=== PATIENT | male | born 1945 | race Caucasian/White ===

== ENCOUNTER 2018-04-14 06:26 | Day surgery (SDC) | payer BC, MEDICARE ==
[2018-04-14] MEDS ORDERED: Lactated Ringers 1,000 ML IV SCH (07:00)
[2018-04-14] MEDS ORDERED: Midazolam 1 MG/ML 2 ML SDV ONE (07:21)
[2018-04-14] MEDS ORDERED: fentaNYL 100 MCG/2 ML SDV ONE (07:21)
[2018-04-14] MEDS ORDERED: Propofol 200 MG/20 ML SDV ONE (07:22)
[2018-04-14 09:16] VITALS: BP 142/82
--- NOTE | 2018-04-14 14:26 | OR ---
DATE OF PROCEDURE: 04/14/2018 PREOPERATIVE DIAGNOSIS: History of adenomatous colon polyps. POSTOPERATIVE DIAGNOSES: Diverticulosis, history of adenomatous colon polyps. PROCEDURE: Colonoscopy to the cecum. ANESTHESIA: IV anesthesia with monitored anesthesia care. INDICATION: This 72-year-old white male is here for a colonoscopy because of a history of adenomatous colon polyps. His last colonoscopic exam he says was done 3 years ago. I counseled him for the procedure including risks and alternatives and he gave his informed consent to proceed. DESCRIPTION OF PROCEDURE: The patient was placed in the left lateral decubitus position. IV anesthesia was administered by the Anesthesia Service. Time-out was held. The flexible video Olympus colonoscope was introduced through his anus, up his rectum, and out his colon, all the way to the cecum. En route, we saw multiple left-sided diverticula. There was no bleeding or inflammation associated with any of them. Once the cecum was reached, the scope was slowly withdrawn examining the mucosa throughout. No additional mucosal abnormalities were noted. The scope was retroflexed in the rectum with the distal rectum appearing unremarkable. The scope was straightened and removed. He tolerated the procedure well. Repeat colonoscopy in 5 years. Berto Montanez MD /[id number]
== END 2018-04-14 09:25 | disposition home or self-care (01) ==
LOC: JP.SDS 06:26
PROVIDERS: ATTEND Surgery
DX: Z12.11 Encounter for screening for malignant neoplasm of colon (principal); K57.30 Diverticulosis of large intestine without perforation or abscess without bleeding; I10 Essential (primary) hypertension; E78.5 Hyperlipidemia, unspecified; Z86.010 Personal history of colon polyps; Z88.1 Allergy status to other antibiotic agents; Z88.2 Allergy status to sulfonamides
CPT/HCPCS: G0105; J2250; J2704; J3010; J7120

== ENCOUNTER 2020-11-28 13:42 | Emergency (ER) | payer MEDICARE ==
[2020-11-28 14:00] VITALS: BP 179/84; PULSE 70
[2020-11-28] MEDS ORDERED: HYDROmorphone 0.5 MG/0.5 ML Syringe IVPUSH ONE (14:18)
[2020-11-28] MEDS ORDERED: Sodium Chloride 0.9% 10 ML Syringe FLUSH PRN (14:18)
--- NOTE | 2020-11-28 14:29 | EDM.PDOC ---
ED HPI GENERAL MEDICAL PROBLEM - General Chief Complaint: Abdominal Pain Stated Complaint: GALLBLADDER PAIN Time Seen by Provider: 11/28/20 14:15 Source of Information: Reports: Patient, Old Records (requested from [place]) History Limitations: Reports: No Limitations - History of Present Illness INITIAL COMMENTS - FREE TEXT/NARRATIVE: 75 yo male who lives locally was seen this past Tuesday in a hospital in [place] this past and dx with acute cholecystitis and treated with hydrocodone and Augmentin. Records actually show that his CT scan showed cholelithiasis and no cholecystitis. He did also have a 4-5 mm stone in either his cystic duct or his common duct. He had in addition the incidental finding of a 3.5 mm infrarenal aortic aneurysm. His wbc ct was 9.9 and his BMP was all normal. He was instructed also to follow up with his primary upon return home for a surgical referral. He is now back home and is still having pain so came here to our ER. He implies that the hydrocodone has not done him a lot of good. He was doing well after d/c from [place] ER until last night when he ate some corn oil margarine last night on crackers and has had pain ever since. No fever. No jaundice. Pain is epigastric. Onset: Sudden Onset Date: 11/27/20 Duration: Hour(s):, Constant Location: Reports: Abdomen (epigastrium) Quality: Reports: Pressure Severity: Moderate Improves with: Reports: None Worsens with: Reports: Other (? eating fat) Context: Reports: Other (See HPI) Associated Symptoms: Reports: No Other Symptoms. Denies: Fever/Chills, Nausea/Vomiting Treatments LIBRARY SERVICES ASSISTANT: Reports: Other (see below) (Augmentin and hydrocodone/APAP) Right Upper Abdomen Pain Score (Numeric/FACES): 6 - Related Data Allergies Allergy/AdvReac Type Severity Reaction Status Date / Time ofloxacin [From Floxin] Allergy Unknown Cannot Verified 11/28/20 14:05 Remember sulfadiazine Allergy Unknown Cannot Verified 11/28/20 14:05 Remember Home Meds: Home Meds Fosinopril [Monopril] 30 mg PO DAILY 02/14/15 [History] atorvaSTATin [Lipitor] 40 mg PO BEDTIME 02/14/15 [History] Amoxicillin/Clavulanate K [Augmentin 875-125 MG] 1 tab PO BID 11/28/20 [History] oxyCODONE 5 mg PO Q4HR PRN 11/28/20 [History] Past Medical History HEENT History: Reports: Impaired Vision, Other (See Below) Other HEENT History: wears reading glasses Cardiovascular History: Reports: High Cholesterol, Hypertension Respiratory History: Reports: None Gastrointestinal History: Reports: Colon Polyp, Other (See Below) Other Gastrointestinal History: colon tubular adenomas, "heart burn" Genitourinary History: Reports: None Musculoskeletal History: Reports: None Neurological History: Reports: None Psychiatric History: Reports: None Endocrine/Metabolic History: Reports: None Hematologic History: Reports: None Immunologic History: Reports: None Oncologic (Cancer) History: Reports: None Dermatologic History: Reports: None - Infectious Disease History Infectious Disease History: Reports: None - Past Surgical History Head Surgeries/Procedures: Reports: None HEENT Surgical History: Reports: Eye Surgery, Other (See Below) Other HEENT Surgeries/Procedures: TRIGEM EYE SURGERY for growth on eye ball Cardiovascular Surgical History: Reports: None GI Surgical History: Reports: Colonoscopy, Hernia, Inguinal Endocrine Surgical History: Reports: None Neurological Surgical History: Reports: None Musculoskeletal Surgical History: Reports: None Oncologic Surgical History: Reports: None Dermatological Surgical History: Reports: None Social & Family History - Family History HEENT: Reports: Cataract, Glaucoma, Hearing Impairment, Impaired Vision, Macular Degeneration Cardiac: Reports: Bypass, CAD, Hypertension Respiratory: Reports: None GI: Reports: None : Reports: None OBGYN: Reports: None Musculoskeletal: Reports: Arthritis Neurological: Reports: CVA Psychiatric: Reports: None Endocrine/Metabolic: Reports: None Hematologic: Reports: None Immunologic: Reports: None Dermatologic: Reports: None Oncologic: Reports: None - Tobacco Use Tobacco Use Status *Q: Never Tobacco User - Caffeine Use Caffeine Use: Reports: Coffee - Recreational Drug Use Recreational Drug Use: No ED ROS GENERAL - Review of Systems Review Of Systems: See Below Constitutional: Reports: No Symptoms. Denies: Fever, Chills HEENT: Reports: No Symptoms Respiratory: Reports: No Symptoms Cardiovascular: Reports: No Symptoms GI/Abdominal: Reports: Abdominal Pain. Denies: Black Stool, Bloody Stool, Constipation, Diarrhea, Distension, Hematemesis, Melena, Nausea, Vomiting : Reports: No Symptoms Musculoskeletal: Reports: No Symptoms Skin: Reports: No Symptoms Neurological: Reports: No Symptoms ED EXAM, GI/ABD - Physical Exam Exam: See Below Exam Limited By: No Limitations General Appearance: Alert, WD/WN, Mild Distress Eyes: Bilateral: Normal Appearance (no scleral icterus) Ears: Normal External Exam, Normal Canal, Hearing Grossly Normal Nose: Normal Inspection, No Blood Throat/Mouth: Normal Inspection, Normal Lips, Normal Oropharynx, Normal Voice, No Airway Compromise Head: Atraumatic, Normocephalic Neck: Normal Inspection Respiratory/Chest: No Respiratory Distress, Lungs Clear, Normal Breath Sounds, No Accessory Muscle Use Cardiovascular: Regular Rate, Rhythm, No Edema GI/Abdominal Exam: Normal Bowel Sounds, Soft, No Distention, Tender (epigastrium). No: Distended, Guarding, Rigid, Rebound Extremities: Normal Inspection, Normal Range of Motion, Non-Tender, No Pedal Edema. No: Pedal Edema Neurological: Alert, Oriented, CN II-XII Intact, Normal Cognition, No Motor/Sensory Deficits Psychiatric: Normal Affect, Normal Mood Skin Exam: Warm, Dry, Intact, Normal Color, No Rash Course - Vital Signs Last Recorded V/S: Last Vital Signs Temp 36.4 C 11/28/20 14:15 Pulse 70 11/28/20 14:15 Resp 16 11/28/20 14:15 BP 179/84 H 11/28/20 14:15 Pulse Ox 99 11/28/20 14:15 - Orders/Labs/Meds Orders: Active Orders 24 hr Category Date Time Status Sodium Chloride 0.9% [Saline Flush] Med 11/28/20 14:18 Active 10 ml FLUSH ASDIRECTED PRN Saline Lock Insert [OM.PC] Routine Oth 11/28/20 14:18 Ordered Medication Orders Sodium Chloride (Sodium Chloride 0.9% 10 Ml Syringe) 10 ml FLUSH ASDIRECTED PRN PRN Reason: Keep Vein Open Last Admin: 11/28/20 14:31 Dose: 10 ml Documented by: [id number] Labs: Laboratory Tests 11/28/20 11/28/20 Range/Units 14:47 14:47 WBC 9.2 (4.5-11.0) K/uL RBC 5.01 (4.30-5.90) M/uL Hgb 14.4 (12.0-15.0) g/dL Hct 42.7 (40.0-54.0) % MCV 85 (80-98) fL MCH 29 (27-31) pg MCHC 34 (32-36) % Plt Count 211 (150-400) K/uL Sodium 139 L (140-148) mmol/L Potassium 4.2 (3.6-5.2) mmol/L Chloride 102 (100-108) mmol/L Carbon Dioxide 28 (21-32) mmol/L Anion Gap 13.2 (5.0-14.0) mmol/L BUN 20 H (7-18) mg/dL Creatinine 0.9 (0.8-1.3) mg/dL Est Cr Clr Drug Dosing 74.35 mL/min Estimated GFR (MDRD) > 60 (>60) Glucose 101 (74-106) mg/dL Calcium 8.5 (8.5-10.1) mg/dL Total Bilirubin 0.8 (0.2-1.0) mg/dL AST 30 (15-37) U/L ALT 48 (12-78) U/L Alkaline Phosphatase 80 (46-116) U/L C-Reactive Protein 4.09 H (0.0-0.3) mg/dL Total Protein 6.4 (6.4-8.2) g/dL Albumin 3.6 (3.4-5.0) g/dL Globulin 2.8 (2.3-3.5) g/dL Albumin/Globulin Ratio 1.3 (1.2-2.2) Lipase 80 (73-393) U/L Meds: Medications Generic Name Dose Route Start Last Admin Trade Name Freq PRN Reason Stop Dose Admin Sodium Chloride 10 ml 11/28/20 14:18 11/28/20 14:31 Sodium Chloride 0.9% 10 Ml Syringe FLUSH 10 ml ASDIRECTED PRN Administration Keep Vein Open Discontinued Medications Generic Name Dose Route Start Last Admin Trade Name Freq PRN Reason Stop Dose Admin Hydromorphone HCl 0.5 mg 11/28/20 14:18 11/28/20 14:30 Hydromorphone 0.5 Mg/0.5 Ml Syringe IVPUSH 11/28/20 14:19 0.5 mg ONETIME ONE Administration Departure - Departure Time of Disposition: 16:23 Disposition: Home, Self-Care 01 Condition: Fair Clinical Impression: Biliary colic symptom - Discharge Information *PRESCRIPTION DRUG MONITORING PROGRAM REVIEWED*: Not Applicable *COPY OF PRESCRIPTION DRUG MONITORING REPORT IN PATIENT LOPEZ: Not Applicable Instructions: Biliary Colic, Adult Referrals: Dakota Cordero MD [Primary Care Provider] - Forms: ED Department Discharge Additional Instructions: Eat a no fat diet for now. Someone will call you with an appt to see one of our surgeons next week regarding your gallbladder. Return for fever, uncontrolled pain, or turning yellow. Sepsis Event Note (ED) - Evaluation Sepsis Screening Result: No Definite Risk - Focused Exam Vital Signs: Vital Signs Temp Pulse Resp BP Pulse Ox 11/28/20 14:15 36.4 C 70 16 179/84 H 99 11/28/20 13:58 36.4 C 70 16 179/84 H 99 - My Orders Last 24 Hours: My Active Orders 11/28/20 14:18 Sodium Chloride 0.9% [Saline Flush] 10 ml FLUSH ASDIRECTED PRN Saline Lock Insert [OM.PC] Routine - Assessment/Plan Last 24 Hours: My Active Orders 11/28/20 14:18 Sodium Chloride 0.9% [Saline Flush] 10 ml FLUSH ASDIRECTED PRN Saline Lock Insert [OM.PC] Routine
== END 2020-11-28 16:45 | disposition home or self-care (01) ==
LOC: JP.ED 13:42
DX: R10.13 Epigastric pain (principal); E78.00 Pure hypercholesterolemia, unspecified; I10 Essential (primary) hypertension; Z88.1 Allergy status to other antibiotic agents; Z88.8 Allergy status to other drugs, medicaments and biological substances; Z79.899 Other long term (current) drug therapy
CPT/HCPCS: 36415; 80053; 83690; 85027; 86140; 96374; 99284; J1170

== ENCOUNTER 2020-12-18 12:44 | Observation (INO) | payer MEDICARE ==
[2020-12-18] MEDS ORDERED: Sodium Chloride 0.9% 10 ML Syringe FLUSH PRN (13:38)
--- NOTE | 2020-12-18 13:44 | EDM.PDOC ---
ED HPI GENERAL MEDICAL PROBLEM - General Chief Complaint: Abdominal Pain Stated Complaint: GALL BLADDER ATTACK Time Seen by Provider: 12/18/20 13:21 Source of Information: Reports: Patient, Family, Old Records, RN Notes Reviewed History Limitations: Reports: No Limitations - History of Present Illness INITIAL COMMENTS - FREE TEXT/NARRATIVE: 75-year-old gentleman presents emergency department day complaint of epigastric right upper quadrant pain, he has had an extensive evaluation for, including a CT of the abdomen MRCP of the abdomen CT of the abdomen did show acute cholecy stitis with questionable stone in the gallbladder duct MRCP did not reveal any stone. He had a preop done yesterday which had normal lab work. He states he was doing well and then this morning he had breakfast nothing out of the ordinary sudden onset epigastric pain right upper quadrant pain which she has had before. He denies any shortness of breath nausea vomiting or chest pain no diaphoresis. Abdominal Pain Score (Numeric/FACES): 8 - Related Data Allergies Allergy/AdvReac Type Severity Reaction Status Date / Time ofloxacin [From Floxin] Allergy Unknown Cannot Verified 12/18/20 13:07 Remember sulfadiazine Allergy Unknown Cannot Verified 12/18/20 13:07 Remember Home Meds: Home Meds Fosinopril [Monopril] 30 mg PO DAILY 02/14/15 [History] atorvaSTATin [Lipitor] 40 mg PO BEDTIME 02/14/15 [History] Past Medical History HEENT History: Reports: Impaired Vision, Other (See Below) Other HEENT History: wears reading glasses Cardiovascular History: Reports: High Cholesterol, Hypertension Gastrointestinal History: Reports: Colon Polyp, Other (See Below) Other Gastrointestinal History: colon tubular adenomas, "heart burn" - Past Surgical History Head Surgeries/Procedures: Reports: None HEENT Surgical History: Reports: Eye Surgery, Other (See Below) Other HEENT Surgeries/Procedures: TRIGEM EYE SURGERY for growth on eye ball Cardiovascular Surgical History: Reports: None GI Surgical History: Reports: Colonoscopy, Hernia, Inguinal Endocrine Surgical History: Reports: None Neurological Surgical History: Reports: None Musculoskeletal Surgical History: Reports: None Oncologic Surgical History: Reports: None Dermatological Surgical History: Reports: None Social & Family History - Family History HEENT: Reports: Cataract, Glaucoma, Hearing Impairment, Impaired Vision, Macular Degeneration Cardiac: Reports: Bypass, CAD, Hypertension Respiratory: Reports: None GI: Reports: None : Reports: None OBGYN: Reports: None Musculoskeletal: Reports: Arthritis Neurological: Reports: CVA Psychiatric: Reports: None Endocrine/Metabolic: Reports: None Hematologic: Reports: None Immunologic: Reports: None Dermatologic: Reports: None Oncologic: Reports: None - Tobacco Use Tobacco Use Status *Q: Never Tobacco User Second Hand Smoke Exposure: No - Caffeine Use Caffeine Use: Reports: Coffee Other Caffeine Use: 2 cups per day of coffee - Alcohol Use Days Per Week of Alcohol Use: 0 - Recreational Drug Use Recreational Drug Use: No ED ROS GENERAL - Review of Systems Review Of Systems: See Below Constitutional: Denies: Fever, Chills HEENT: Reports: No Symptoms Respiratory: Reports: No Symptoms Cardiovascular: Reports: No Symptoms GI/Abdominal: Reports: Abdominal Pain. Denies: Nausea, Vomiting : Reports: No Symptoms Musculoskeletal: Reports: No Symptoms ED EXAM, GI/ABD - Physical Exam Exam: See Below Exam Limited By: No Limitations General Appearance: Alert, WD/WN, No Apparent Distress Respiratory/Chest: No Respiratory Distress, Lungs Clear, Normal Breath Sounds, No Accessory Muscle Use, Chest Non-Tender Cardiovascular: Regular Rate, Rhythm, No Murmur GI/Abdominal Exam: Soft, Guarding, Tender (Right upper quadrant) Course - Vital Signs Last Recorded V/S: Last Vital Signs Temp 97.9 F 12/18/20 13:09 Pulse 70 12/18/20 13:09 Resp 99 H 12/18/20 13:09 BP 165/68 H 12/18/20 13:09 Pulse Ox 100 12/18/20 13:09 - Orders/Labs/Meds Orders: Active Orders 24 hr Category Date Time Status Peripheral IV Care [RC] . DIRECTED Care 12/18/20 13:38 Ordered COVID-19/FLU A+B/RSV [MOLEC] Stat Lab 12/18/20 13:38 Ordered Sodium Chloride 0.9% [Saline Flush] Med 12/18/20 13:38 Ordered 10 ml FLUSH ASDIRECTED PRN Isolation [COMM] Stat Oth 12/18/20 13:39 Ordered Peripheral IV Insertion Adult [OM.PC] Urgent Oth 12/18/20 13:38 Ordered Medication Orders Sodium Chloride (Sodium Chloride 0.9% 10 Ml Syringe) 10 ml FLUSH ASDIRECTED PRN PRN Reason: Keep Vein Open Meds: Medications Generic Name Dose Route Start Last Admin Trade Name Freq PRN Reason Stop Dose Admin Sodium Chloride 10 ml 12/18/20 13:38 Sodium Chloride 0.9% 10 Ml Syringe FLUSH ASDIRECTED PRN Keep Vein Open Departure - Departure Time of Disposition: 13:44 Disposition: Refer to Observation Condition: Fair Clinical Impression: Abdominal pain Qualifiers: Abdominal location: right upper quadrant Qualified Code(s): R10.11 - Right upper quadrant pain - Discharge Information Referrals: Dakota Cordero MD [Primary Care Provider] - Sepsis Event Note (ED) - Evaluation Sepsis Screening Result: No Definite Risk - Focused Exam Vital Signs: Vital Signs Temp Pulse Resp BP Pulse Ox 12/18/20 13:09 97.9 F 70 99 H 165/68 H 100 12/18/20 13:02 97.9 F 70 99 H 165/68 H - My Orders Last 24 Hours: My Active Orders 12/18/20 13:38 Peripheral IV Care [RC] . DIRECTED COVID-19/FLU A+B/RSV [MOLEC] Stat Sodium Chloride 0.9% [Saline Flush] 10 ml FLUSH ASDIRECTED PRN Peripheral IV Insertion Adult [OM.PC] Urgent 12/18/20 13:39 Isolation [COMM] Stat - Assessment/Plan Last 24 Hours: My Active Orders 12/18/20 13:38 Peripheral IV Care [RC] . DIRECTED COVID-19/FLU A+B/RSV [MOLEC] Stat Sodium Chloride 0.9% [Saline Flush] 10 ml FLUSH ASDIRECTED PRN Peripheral IV Insertion Adult [OM.PC] Urgent 12/18/20 13:39 Isolation [COMM] Stat Plan: Assessment Acuity = acute Site and laterality = right upper quadrant pain Etiology = probable acute cholecystitis Manifestations = none Location of injury = Home Lab values = none Plan Call discussed case Dr. Michele general surgery at 1340 kindly agreed to come and evaluate the patient in the hospital for admission plan for surgical intervention This note was dictated using MAPPING voice recognition software please call with any questions on syntax or grammar.
[2020-12-18] MEDS ORDERED: HYDROmorphone 0.5 MG/0.5 ML Syringe IVPUSH ONE (13:51)
[2020-12-18] MEDS ORDERED: Ondansetron 4 MG/2 ML SDV IVPUSH ONE (14:46)
[2020-12-18 15:33] LABS: CORONAVIRUS COVID-19 NAA NEGATIVE (NEGATIVE)
[2020-12-18] MEDS ORDERED: Acetaminophen/HYDROcodone 325-5 MG Tab PO PRN (16:41)
[2020-12-18] MEDS ORDERED: Benzocaine/Cetylpyridinium/Menthol Lozenge MUCMEM PRN (16:42)
[2020-12-18] MEDS ORDERED: Docusate Sodium 100 MG Cap PO PRN (16:42)
[2020-12-18] MEDS ORDERED: fentaNYL 100 MCG/2 ML SDV IVPUSH PRN ×3 (16:43→16:44)
[2020-12-18] MEDS ORDERED: Ondansetron 4 MG/2 ML SDV IVPUSH PRN (16:45)
[2020-12-18] MEDS ORDERED: hydrOXYzine HCL 100 MG/2 ML SDV IM PRN (16:45)
[2020-12-18] MEDS ORDERED: Scopolamine 1.5 MG Transdermal Patch TOP ONE (16:45)
[2020-12-18] MEDS ORDERED: Zolpidem 5 MG Tab PO PRN (16:46)
[2020-12-18] MEDS: Sodium Chloride 0.9% 1,000 ML IV SCH (17:25)
[2020-12-19] MEDS: Sodium Chloride 0.9% 1,000 ML IV SCH ×3 (01:10→20:16)
[2020-12-19] MEDS ORDERED: Dexamethasone 4 MG/ML SDV ONE (08:21)
[2020-12-19] MEDS ORDERED: Rocuronium 50 MG/5 ML Vial ONE (08:21)
[2020-12-19] MEDS ORDERED: Succinylcholine 200 MG/10 ML MDV ONE (08:21)
[2020-12-19] MEDS ORDERED: Propofol 200 MG/20 ML SDV ONE (08:21)
[2020-12-19] MEDS ORDERED: Glycopyrrolate 0.2 MG/ML 5 ML MDV ONE (08:21)
[2020-12-19] MEDS ORDERED: fentaNYL 250 MCG/5 ML SDV ONE ×2 (08:21→11:02)
[2020-12-19] MEDS ORDERED: Ondansetron 4 MG/2 ML SDV ONE (08:21)
[2020-12-19] MEDS ORDERED: Neostigmine Methylsulfate 1 MG/ML 5 ML Syringe ONE (08:21)
[2020-12-19] MEDS ORDERED: Ondansetron 4 MG/2 ML SDV IVPUSH PRN (08:52)
[2020-12-19] MEDS ORDERED: fentaNYL 100 MCG/2 ML SDV IVPUSH PRN ×3 (08:52)
[2020-12-19] MEDS ORDERED: Zolpidem 5 MG Tab PO PRN (08:52)
[2020-12-19] MEDS ORDERED: Docusate Sodium 100 MG Cap PO PRN (08:52)
[2020-12-19] MEDS ORDERED: hydrOXYzine HCL 100 MG/2 ML SDV IM PRN (08:52)
[2020-12-19] MEDS ORDERED: Benzocaine/Cetylpyridinium/Menthol Lozenge MUCMEM PRN (08:52)
[2020-12-19] MEDS ORDERED: Scopolamine 1.5 MG Transdermal Patch TOP ONE (09:30)
[2020-12-19] MEDS ORDERED: Bupivacaine 0.5% 50 ML MDV ONE (10:18)
[2020-12-19] MEDS ORDERED: Lidocaine 1% with EPINEPHrine 1:100,000 50 ML MDV ONE (10:18)
[2020-12-19] MEDS ORDERED: Sodium Chloride 0.9% 10 ML ONE ×2 (10:33→10:34)
[2020-12-19] MEDS ORDERED: ceFAZolin 1 GM Vial ONE (10:33)
[2020-12-19] MEDS ORDERED: DEXAMETHASONE NERVRT SCH ×4 (11:00)
[2020-12-19] MEDS ORDERED: EPINEPHRINE NERVRT SCH ×4 (11:00)
[2020-12-19] MEDS ORDERED: [UNRECOGNIZED DRUG - OTHER] NERVRT SCH ×4 (11:00)
[2020-12-19] MEDS ORDERED: ROPIVACAINE NERVRT SCH ×4 (11:00)
[2020-12-19] MEDS ORDERED: Lactated Ringers 1,000 ML ONE (11:02)
[2020-12-19] MEDS ORDERED: Labetalol 20 MG/4 ML Syringe ONE (11:06)
[2020-12-19] MEDS ORDERED: Lidocaine 1% with EPINEPHrine 1:100,000 50 ML MDV INJECT ONE (12:15)
[2020-12-19] MEDS ORDERED: Bupivacaine 0.5% 50 ML MDV INJECT ONE (12:15)
[2020-12-19] MEDS: Acetaminophen/HYDROcodone 325-5 MG Tab PO PRN (14:27)
[2020-12-20] MEDS: Acetaminophen/HYDROcodone 325-5 MG Tab PO PRN ×3 (08:29→22:01)
--- NOTE | 2020-12-20 08:47 | OR ---
DATE OF PROCEDURE: 12/19/2020 SURGEON: Andres Michele MD PROCEDURES: 1. Laparoscopic cholecystectomy. 2. Intraoperative cholangiogram. COMPLICATIONS: None. TIMING INSPECTOR: None. PREOPERATIVE DIAGNOSES: Cholelithiasis, cholecystitis. POSTOPERATIVE DIAGNOSES: Cholelithiasis, cholecystitis. FINDINGS: 1. Severe and densely inflamed gallbladder with significant inflammation in Calot's triangle. 2. Completely encased gallbladder with omentum. RISKS: Risks, benefits, alternatives and limitations including but not limited to infection, bleeding, possibility of open surgery, cystic duct leaks, common bile duct injuries and other risks not listed here were explained the patient and he wished to proceed. PROCEDURE IN DETAIL: The patient was placed in supine position. A supraumbilical curvilinear incision was made. A Veress needle was used to enter the abdomen without abnormality. A drop test was performed without abnormality. Additional 10 and two 5 mm ports were entered under direct visualization. Once these ports were in, the entry site was inspected for enterotomy or injury, none was noted. Attention was turned to the right upper quadrant. It was immediately noted this was a very thick gallbladder. The omentum was fully engulfed around the gallbladder itself. Over the next 15 minutes or so, dissection of the omentum was needed. The gallbladder itself was noted to be sclerotic. This was also a hydrops gallbladder. Gallbladder itself would be cultured at the end of the procedure. Using blunt dissection, dissection of Calot's triangle was commenced. Over the next approximately 45 minutes to 1 hour, the dissection process continued. What was felt to be a very short cystic duct was identified. It was unclear if this was associated with an anomaly compared to the right hepatic duct. This was due to the large duct structure in proximity to this. concerning for common bile duct injury. Dr. Law was brought in intraoperatively for a second opinion plus consultation. He also had this consultation and a brief intraoperative cholangiogram, it was felt that this was the cystic artery, subsequently clipped due to its short nature. The artery was clipped x2 proximal to this. The remaining one-third of the gallbladder was removed from the gallbladder bed. Of note, prior to transection of these structures, a "clear view" of the gallbladder became single pulsatile structure . As this was the most inflamed and scarred gallbladder in approximately the last 20 years, careful attention was made to ensure no other problems were noted. Therefore, Tisseel was placed over the cystic duct clip. In addition, a 10 flat Aníbal-Terry drain was placed in the gallbladder fossa itself. Pressure was dropped. The gallbladder fossa was inspected for additional bleeding, none was noted. The abdomen was irrigated with 1 liter of irrigation. The drain was brought out through the skin. The air was removed. The wounds were closed with 3-0 Vicryl and 4-0 Vicryl in interrupted running fashion. Dermabond was applied. The patient tolerated the procedure well. Andres Michlee MD /[id number]
--- NOTE | 2020-12-20 08:47 | OR ---
DATE OF PROCEDURE: 12/19/2020 SURGEON: Andres Michele MD PROCEDURES: 1. Transversus abdominis plane block. 2. Bilateral rectus sheath blocks. COMPLICATION: None. SAND WHEELER: None. RISKS: Risks, benefits, alternatives, and limitations, including, but not limited to, infection, bleeding, and injury to abdominal structures, were all explained to the patient, who wished to proceed. PROCEDURE IN DETAIL: The patient was placed in supine position. The left transverse plane was identified first. This was accessed using a 13 megahertz ultrasound probe using a 21- gauge needle. 20% of the solution was injected under direct visualization. This was then performed on the other side. Bilateral rectus sheath injections were also performed, also under direct visualization, and 20% of the solution was injected in each of these respectively. At no point was the needle blindly advanced. All 4 procedures were performed in the same manner, same fashion, same technique, in the same sequence, and using the same equipment using standard landmarks. Andres Michele MD /[id number]
[2020-12-20] MEDS: Lisinopril 10 MG Tab PO SCH (11:15)
[2020-12-20] MEDS: Piperacillin/Tazobactam/Dext 3.375 GM in Premix Bag 1 BAG IV SCH ×3 (11:59→22:01)
[2020-12-20] MEDS ORDERED: atorvaSTATin 20 MG Tab PO SCH (21:00)
[2020-12-21] MEDS: Piperacillin/Tazobactam/Dext 3.375 GM in Premix Bag 1 BAG IV SCH ×2 (04:06→10:15)
[2020-12-21 07:19] VITALS: BP 124/62; PULSE 68
[2020-12-21] MEDS: Lisinopril 10 MG Tab PO SCH (08:51)
[2020-12-21] MEDS: Acetaminophen/HYDROcodone 325-5 MG Tab PO PRN (08:52)
[2020-12-21] MEDS ORDERED: Magnesium Hydroxide 400 MG/5 ML Susp 30 ML Cup PO ONE (09:00)
--- NOTE | 2020-12-21 09:34 | PN ---
DATE OF SERVICE: 12/21/2020 The patient remains clinically stable status post laparoscopic cholecystectomy, which was quite difficult. I think he has had enough antibiotics. At this point, we will discharge him home today with the drain in place in the case later a postoperative bile leak develops. He will be receiving some [place] and milk of magnesia. Otherwise, continue the present home medications and followup with Dr. Michele will be on 12/25/2020. Bakari Law MD Job #: [id number]
--- NOTE | 2020-12-21 14:19 | PN ---
DATE OF SERVICE: 12/20/2020 The patient had a complicated cholecystectomy yesterday with a very short cystic duct closure. He was kept overnight and we will continue with some IV antibiotics today. The MATILDA drain is not showing any bile at this point, but the plan will be to leave that in for several days so as to prevent bile peritonitis should the cystic duct closure open up. Otherwise, his liver function test is satisfactory with alkaline phosphatase being normal and total bilirubin at 0.5, 0.6 yesterday. AST and ALT are up a little bit consistent with significant cholecystitis and dissection on the liver surface. Otherwise, the plan today will be to continue with some IV antibiotics. We will restart him on mild slightly hypertensive, but I think the former should likely bring that down. We will go up to a regular diet, add some Colace, and teach the patient and MATILDA drain care. He will most likely be ready for discharge home tomorrow. Bakari Law MD Job #: [id number]
== END 2020-12-21 11:30 | disposition home or self-care (01) ==
LOC: JP.ED 12:44 → JP.MS 16:21
PROVIDERS: ADMIT Surgery; ATTEND Surgery
DX: K81.2 Acute cholecystitis with chronic cholecystitis (principal); E78.00 Pure hypercholesterolemia, unspecified; I10 Essential (primary) hypertension; K21.9 Gastro-esophageal reflux disease without esophagitis; Z88.2 Allergy status to sulfonamides; Z88.8 Allergy status to other drugs, medicaments and biological substances; Z79.899 Other long term (current) drug therapy; Z98.890 Other specified postprocedural states
CPT/HCPCS: 0241U; 36415; 47563; 80053; 83735; 84100; 85025; 85027; 87070; 87075; 87205; 88304; 96365; 96375; 96376; 99284; A9270; G0378; J0171; J0330; J0690; J1100; J1170; J2405; J2543; J2704; J2710; J2795; J3010; J3410; J3490; J7030; J7120; 96374

== ENCOUNTER 2023-04-04 08:16 | Day surgery (SDC) | payer MEDICARE ==
[~2023-04-04 08:16] MED LIST: Propofol 200 MG/20 ML SDV ONE; fentaNYL 100 MCG/2 ML SDV ONE
[2023-04-04] MEDS: Lactated Ringers 1,000 ML IV SCH (08:55)
[2023-04-04 12:19] VITALS: BP 129/61; PULSE 62
== END 2023-04-04 12:26 | disposition home or self-care (01) ==
LOC: JP.SDS 08:16
PROVIDERS: ATTEND Student in an Organized Health Care Education/Training Program
DX: Z12.11 Encounter for screening for malignant neoplasm of colon (principal); K57.30 Diverticulosis of large intestine without perforation or abscess without bleeding; I10 Essential (primary) hypertension; E78.5 Hyperlipidemia, unspecified; Z86.010 Personal history of colon polyps; N40.1 Benign prostatic hyperplasia with lower urinary tract symptoms; R73.9 Hyperglycemia, unspecified; Z79.899 Other long term (current) drug therapy
CPT/HCPCS: G0105; J2704; J3010; J7120